=== PATIENT | male | born 1990 | race Caucasian/White ===

== ENCOUNTER 2016-10-14 02:40 | Emergency (ER) | payer OTHER ==
[~2016-10-14] VITALS: Ht 170.2 cm; Wt 77.1 kg
[2016-10-14 02:45] VITALS: BP 138/79
--- NOTE | 2016-10-14 05:45 | NUR ---
CALLED PT NAME X3 IN WAITING ROOM. NO RESPONSE.
--- NOTE | 2016-10-14 06:01 | NUR ---
CALLED PT NAME IN WAITING ROOM. NO RESPONSE. PER SECUIRTY PT LEFT.
--- NOTE | 2016-10-14 06:03 | NUR ---
PT LEFT WITHOUT BEING SEEN. DR. LOMELI AWARE.
== END 2016-10-14 06:04 | disposition left against medical advice (07) ==
LOC: ER 02:40
DX: Z53.21 Procedure and treatment not carried out due to patient leaving prior to being seen by health care provider (principal)
CPT/HCPCS: A4606; Z7610

== ENCOUNTER 2016-11-04 18:39 | Emergency (ER) | payer OTHER ==
[~2016-11-04] VITALS: Ht 170.2 cm; Wt 75.3 kg
[2016-11-04 18:49] VITALS: BP 123/90
[2016-11-04] MEDS ORDERED: IV NS 0.9% 1,000 ML BAG IV ONE (19:30)
[2016-11-04] MEDS ORDERED: LORAZEPAM 1 MG TABLET ONE (19:51)
[2016-11-04] MEDS ORDERED: LORAZEPAM 1 MG TABLET PO ONE (20:00)
== END 2016-11-04 20:19 | disposition home or self-care (01) ==
LOC: ER 18:42
DX: F15.10 Other stimulant abuse, uncomplicated (principal); F20.9 Schizophrenia, unspecified
CPT/HCPCS: A4606; J7030; Z7610